=== PATIENT | male | born 1980 | race American Indian/Alaskan Native ===

== ENCOUNTER 2021-12-16 19:50 | Emergency (ER) | payer SELFPAY ==
[2021-12-17] MEDS ORDERED: traMADol 50 MG TAB PO ONE (00:12)
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
[2021-12-17 01:45] VITALS: BP 158/99
== END 2021-12-17 01:41 | disposition home or self-care (01) ==
LOC: ED 19:50
DX: S16.1XXA Strain of muscle, fascia and tendon at neck level, initial encounter (principal); Z88.0 Allergy status to penicillin; Z79.899 Other long term (current) drug therapy; V87.7XXA Person injured in collision between other specified motor vehicles (traffic), initial encounter; Y93.89 Activity, other specified; Y92.488 Other paved roadways as the place of occurrence of the external cause; Y99.8 Other external cause status
CPT/HCPCS: 72040; 99283